=== PATIENT | male | born 1960 | race Caucasian/White ===

== ENCOUNTER 2020-12-30 10:28 | Emergency (ER) | payer MEDICAID ==
[~2020-12-30] VITALS: Ht 180.3 cm; Wt 70.5 kg
[2020-12-30] MEDS ORDERED: morphine 2 MG/ML inj. syringe IV PRN (11:25)
[2020-12-30] MEDS ORDERED: normal saline 1000ML IV soln IVB ONE ×2 (11:25)
[2020-12-30] MEDS ORDERED: diphenhydrAMINE 50 mg/ml inj IV ONE (11:25)
[2020-12-30] MEDS ORDERED: metoclopramide 5 mg/ml inj IV ONE (11:25)
[2020-12-30 11:30] LABS: BASOPHILS # (AUTO) 0.1 X10'3 (0-0.2); BASOPHILS % (AUTO) 0.8 % (0-1); EOSINOPHILS # (AUTO) 0.2 X10'3 (0-0.9); EOSINOPHILS % (AUTO) 2.2 % (0-6); HEMATOCRIT 40.4 % (42.0-52.0); HEMOGLOBIN 13.5 g/dl (14.0-17.9); LYMPHOCYTES # (AUTO) 2.4 X10'3 (1.1-4.8); LYMPHOCYTES % (AUTO) 24.2 % (21-51); MEAN CORPUSCULAR HEMOGLOBIN 31.3 PG (27.0-31.0); MEAN CORPUSCULAR HGB CONC 33.3 g/dL (33.0-36.5); MEAN CORPUSCULAR VOLUME 93.9 FL (78-98); MEAN PLATELET VOLUME 8.7 FL (7.4-10.4); MONOCYTES # (AUTO) 0.7 X10'3 (0-0.9); MONOCYTES % (AUTO) 7.4 % (2-12); NEUTROPHILS # (AUTO) 6.4 X10'3 (1.8-7.7); NEUTROPHILS % (AUTO) 65.4 % (42-75); PLATELET COUNT 307 X10'3 (140-440); RED CELL DISTRIBUTION WIDTH 16.2 % (11.5-14.5); WHITE BLOOD COUNT 9.8 X10'3 (4.5-11.0)
[2020-12-30 11:35] LABS: CLARITY,URINE SLIGHTLY CLOUDY (Clear); COLOR,URINE YELLOW (Yellow); GLUCOSE, URINE NEGATIVE (Neg); KETONES,URINE NEGATIVE (Neg); LEUKOCYTE ESTERASE ,URINE TRACE (Neg); NITRITES, URINE NEGATIVE (Neg); OCCULT BLOOD,URINE TRACE-INTACT (Neg); PROTEIN,URINE NEGATIVE (Neg)
[2020-12-30 11:40] LABS: UA COLLECTION TYPE CLN CATCH MIDSTREAM
[2020-12-30 11:41] LABS: RBC,URINE NONE SEEN /HPF (0-2)
[2020-12-30 11:42] LABS: BACTERIA,URINE NONE SEEN /HPF (Neg); MUCUS STRANDS FEW /LPF (Neg); SQUAMOUS EPITHELIAL CELL,UR FEW /LPF (FEW)
[2020-12-30 11:43] LABS: ALANINE AMINOTRANSFERASE 15 U/L (12-78); ALBUMIN 3.3 G/DL (3.4-5.0); ALBUMIN/GLOBULIN RATIO 0.9 (1.1-1.5); ALKALINE PHOSPHATASE 127 IU/L (46-116); ANION GAP 9 (8-16); ASPARTATE AMINO TRANSFERASE 16 U/L (10-37); BILIRUBIN,TOTAL 0.4 MG/DL (0.1-1.0); BLOOD UREA NITROGEN 11 MG/DL (7-18); BUN/CREATININE RATIO 10.9 (5.4-32.0); CALCIUM 8.2 MG/DL (8.5-10.1); CHLORIDE 107 MMOL/L (99-107); CREATININE 1.01 MG/DL (0.60-1.10); GLUCOSE 87 MG/DL (70-104); LIPASE 435 U/L (73-393); SODIUM 145 MMOL/L (135-145); TOTAL CARBON DIOXIDE 29.5 MMOL/L (24-32); eGFR 76 ML/MIN
[2020-12-30] MEDS ORDERED: ONDA4TAB12 PO (12:22)
[2020-12-30] MEDS ORDERED: HYDR-3965 PO (12:22)
[2020-12-30] MEDS ORDERED: CEPH-585 PO (12:22)
[2020-12-30 12:44] VITALS: BP 151/90
== END 2020-12-30 12:46 | disposition home or self-care (01) ==
LOC: ER 10:29
DX: R10.13 Epigastric pain (principal); K85.90 Acute pancreatitis without necrosis or infection, unspecified; N39.0 Urinary tract infection, site not specified; J44.9 Chronic obstructive pulmonary disease, unspecified; F17.200 Nicotine dependence, unspecified, uncomplicated; F12.90 Cannabis use, unspecified, uncomplicated; F15.90 Other stimulant use, unspecified, uncomplicated; Z86.14 Personal history of Methicillin resistant Staphylococcus aureus infection; Z90.49 Acquired absence of other specified parts of digestive tract; Z88.1 Allergy status to other antibiotic agents; Z88.8 Allergy status to other drugs, medicaments and biological substances
CPT/HCPCS: 36415; 80053; 81001; 83690; 85025; 87088; 96361; 96374; 96375; 99284; J1200; J2270; J2765; J7030

== ENCOUNTER 2021-01-09 09:11 | Emergency (ER) | payer MEDICAID ==
[~2021-01-09] VITALS: Ht 180.3 cm; Wt 71.1 kg
[~2021-01-09 09:11] MED LIST: CEPH-585 PO; HYDR-3965 PO; ONDA4TAB12 PO
[2021-01-09] MEDS ORDERED: LORazepam 2 mg/ml vial IV ONE (09:55)
[2021-01-09] MEDS ORDERED: ondansetron/PF 4mg/2ml inj IV ONE (09:55)
[2021-01-09] MEDS ORDERED: normal saline 1000ML IV soln IVB ONE (09:55)
[2021-01-09 11:14] LABS: BASOPHILS # (AUTO) 0.1 X10'3 (0-0.2); BASOPHILS % (AUTO) 0.9 % (0-1); EOSINOPHILS # (AUTO) 0.2 X10'3 (0-0.9); EOSINOPHILS % (AUTO) 2.4 % (0-6); HEMATOCRIT 47.5 % (42.0-52.0); HEMOGLOBIN 16.1 g/dl (14.0-17.9); MEAN CORPUSCULAR HGB CONC 33.8 g/dL (33.0-36.5); MEAN CORPUSCULAR VOLUME 94.7 FL (78-98); MEAN PLATELET VOLUME 9.3 FL (7.4-10.4); MONOCYTES # (AUTO) 0.6 X10'3 (0-0.9); NEUTROPHILS # (AUTO) 5.5 X10'3 (1.8-7.7); NEUTROPHILS % (AUTO) 65.7 % (42-75); PLATELET COUNT 259 X10'3 (140-440); RED BLOOD COUNT 5.02 X10'6 (4.70-6.10); WHITE BLOOD COUNT 8.4 X10'3 (4.5-11.0)
[2021-01-09 11:38] LABS: PARTIAL THROMBOPLASTIN TIME 30 SECONDS (22-32)
[2021-01-09 11:40] VITALS: BP 154/93
[2021-01-09 11:41] LABS: ALANINE AMINOTRANSFERASE 18 U/L (12-78); ALBUMIN 4.3 G/DL (3.4-5.0); ALBUMIN/GLOBULIN RATIO 1.1 (1.1-1.5); ALKALINE PHOSPHATASE 140 IU/L (46-116); ANION GAP 12 (8-16); ASPARTATE AMINO TRANSFERASE 20 U/L (10-37); BILIRUBIN,TOTAL 0.5 MG/DL (0.1-1.0); BLOOD UREA NITROGEN 7 MG/DL (7-18); BUN/CREATININE RATIO 8.4 (5.4-32.0); CALCIUM 9.6 MG/DL (8.5-10.1); CHLORIDE 104 MMOL/L (99-107); CREATININE 0.83 MG/DL (0.60-1.10); ETHANOL < 0.010 GM/DL (0.0-0.010); GLUCOSE 88 MG/DL (70-104); LIPASE 495 U/L (73-393); POTASSIUM 4.1 MMOL/L (3.5-5.1); SODIUM 142 MMOL/L (135-145); TOTAL CARBON DIOXIDE 26.4 MMOL/L (24-32); TOTAL PROTEIN 8.3 G/DL (6.4-8.2); eGFR > 90 ML/MIN
[2021-01-09] MEDS ORDERED: GABA300C PO (12:03)
== END 2021-01-09 12:33 | disposition home or self-care (01) ==
LOC: ER 09:12
DX: F10.10 Alcohol abuse, uncomplicated (principal); R10.10 Upper abdominal pain, unspecified; R11.10 Vomiting, unspecified; R19.7 Diarrhea, unspecified; J44.9 Chronic obstructive pulmonary disease, unspecified; F12.90 Cannabis use, unspecified, uncomplicated; F15.90 Other stimulant use, unspecified, uncomplicated; F11.90 Opioid use, unspecified, uncomplicated; Z86.14 Personal history of Methicillin resistant Staphylococcus aureus infection; Z90.49 Acquired absence of other specified parts of digestive tract; Z98.890 Other specified postprocedural states; Z72.89 Other problems related to lifestyle; Z88.0 Allergy status to penicillin; Z88.8 Allergy status to other drugs, medicaments and biological substances; Z79.2 Long term (current) use of antibiotics; Y90.0 Blood alcohol level of less than 20 mg/100 ml
CPT/HCPCS: 36415; 80053; 80320; 83690; 85025; 85610; 85730; 96374; 96375; 99284; J2060; J2405; J7030

== ENCOUNTER 2021-03-04 12:32 | Emergency (ER) | payer MEDICAID ==
[~2021-03-04] VITALS: Ht 175.3 cm; Wt 68.2 kg
[~2021-03-04 12:32] MED LIST changes: +GABA300C PO; -HYDR-3965 PO
--- NOTE | 2021-03-04 12:36 | NUR ---
PATIENT REFUSING VITALS AT THIS TIME. RPD AT BEDSIDE.
[2021-03-04 12:42] VITALS: BP 0/0
== END 2021-03-04 13:07 ==
LOC: ER 12:32
DX: T40.1X1A Poisoning by heroin, accidental (unintentional), initial encounter (principal); J44.9 Chronic obstructive pulmonary disease, unspecified; F12.90 Cannabis use, unspecified, uncomplicated; F15.90 Other stimulant use, unspecified, uncomplicated; F11.90 Opioid use, unspecified, uncomplicated; Z86.14 Personal history of Methicillin resistant Staphylococcus aureus infection; Z90.49 Acquired absence of other specified parts of digestive tract; Z98.890 Other specified postprocedural states; Z72.89 Other problems related to lifestyle; Z88.8 Allergy status to other drugs, medicaments and biological substances; Z79.2 Long term (current) use of antibiotics; Z79.899 Other long term (current) drug therapy; Y92.89 Other specified places as the place of occurrence of the external cause
CPT/HCPCS: 99284

== ENCOUNTER → 2021-07-03 | Emergency (ER) | payer MEDICAID ==
[~2021-07-03] VITALS: Ht 180.3 cm; Wt 68.0 kg
[~2021-07-03] MED LIST changes: +IVER3TAB2 PO; +Ivermectin 3mg tablet PO STA
[2021-07-03 16:59] VITALS: BP 170/100
== END | disposition home or self-care (01) ==
LOC: ER 16:30
DX: B85.2 Pediculosis, unspecified (principal); J44.9 Chronic obstructive pulmonary disease, unspecified; F17.210 Nicotine dependence, cigarettes, uncomplicated; F12.90 Cannabis use, unspecified, uncomplicated; F15.90 Other stimulant use, unspecified, uncomplicated; F11.90 Opioid use, unspecified, uncomplicated; Z86.14 Personal history of Methicillin resistant Staphylococcus aureus infection; Z90.49 Acquired absence of other specified parts of digestive tract; Z98.890 Other specified postprocedural states; Z72.89 Other problems related to lifestyle; Z88.0 Allergy status to penicillin; Z88.8 Allergy status to other drugs, medicaments and biological substances; Z79.2 Long term (current) use of antibiotics; Z79.899 Other long term (current) drug therapy
CPT/HCPCS: 99283

== ENCOUNTER 2021-09-19 10:37 | Emergency (ER) | payer MEDICAID ==
[~2021-09-19] VITALS: Ht 180.3 cm; Wt 72.0 kg
[~2021-09-19 10:37] MED LIST changes: -Ivermectin 3mg tablet PO STA
[2021-09-19] MEDS ORDERED: HYDR28CR14 TOP (11:23)
[2021-09-19] MEDS ORDERED: IVER3TAB2 PO (11:23)
== END 2021-09-19 11:41 | disposition home or self-care (01) ==
LOC: ER 10:38
DX: R21 Rash and other nonspecific skin eruption (principal); B85.2 Pediculosis, unspecified; J44.9 Chronic obstructive pulmonary disease, unspecified; F12.90 Cannabis use, unspecified, uncomplicated; F15.90 Other stimulant use, unspecified, uncomplicated; F11.90 Opioid use, unspecified, uncomplicated; Z86.14 Personal history of Methicillin resistant Staphylococcus aureus infection; Z90.49 Acquired absence of other specified parts of digestive tract; Z98.890 Other specified postprocedural states; Z72.89 Other problems related to lifestyle; Z88.8 Allergy status to other drugs, medicaments and biological substances; Z88.0 Allergy status to penicillin; Z79.2 Long term (current) use of antibiotics; Z79.899 Other long term (current) drug therapy
CPT/HCPCS: 99283